=== PATIENT | female | born 1990 | race Two or more races ===

== ENCOUNTER 2016-07-25 11:53 | Emergency (ER) | payer OTHER ==
[~2016-07-25] VITALS: Ht 154.9 cm; Wt 59.0 kg
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
--- NOTE | 2016-07-25 11:54 | NUR ---
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
[2016-07-25] MEDS ORDERED: IV NS 0.9% 1,000 ML BAG IV ONE (12:30)
[2016-07-25 12:46] LABS: BASOPHILS % (AUTO) 0.5 % (0.0-2.0); EOSINOPHILS # (AUTO) 0.1 /CMM (0.0-0.7); HEMATOCRIT 38 % (33-45); HEMOGLOBIN 13.3 g/dL (11.5-14.8); LYMPHOCYTES # (AUTO) 1.5 /CMM (0.8-4.8); LYMPHOCYTES % (AUTO) 18.4 % (20.0-44.0); MEAN CORPUSCULAR HEMOGLOBIN 30 PG (26.0-33.0); MEAN CORPUSCULAR HGB CONC 35 g/dl (31.0-36.0); MEAN CORPUSCULAR VOLUME 87 fL (82-100); MONOCYTES # (AUTO) 0.6 /CMM (0.1-1.30); MONOCYTES % (AUTO) 7.6 % (2.0-12.0); NEUTROPHILS # (AUTO) 5.9 /CMM (1.8-8.9); NEUTROPHILS % (AUTO) 72.5 % (43.0-81.0); PLATELET COUNT (AUTO) 294 /CMM (150-450); RED BLOOD CELL COUNT(AUTO) 4.38 MIL/uL (4.0-5.2); WHITE BLOOD COUNT (AUTO) 8.1 K/uL (4.3-11.0)
[2016-07-25] MEDS ORDERED: IV NS 0.9% 1,000 ML ONE (12:50)
[2016-07-25] MEDS ORDERED: IV SET PRIMARY PUMP SET 1 EA INFUS.SET MC ONE (12:51)
[2016-07-25 12:52] LABS: CALCIUM, SERUM 8.6 mg/dL (8.5-10.1); CARBON DIOXIDE 30 mmol/L (21-32); CHLORIDE 104 mmol/L (98-107); CREATININE 0.7 mg/dL (0.6-1.3); GFR 101 mL/min (>60); GLUCOSE 90 mg/dL (74-106); POTASSIUM 3.4 mmol/L (3.5-5.1); SODIUM SERUM 140 mmol/L (136-145); UREA NITROGEN, BLOOD 6 mg/dL (7-18)
[2016-07-25 12:58] LABS: ACETAMINOPHEN 0 ug/ml (10-30); ALANINE AMINOTRANSFERASE 17 U/L (12-78); ALBUMIN 3.7 g/dL (3.4-5.0); ALCOHOL, BLOOD < 3 mg/dL (0-0); ALKALINE PHOSPHATASE 82 U/L (46-116); ASPARTATE AMINOTRANSFERASE 15 U/L (15-37); BILIRUBIN,DIRECT 0.1 mg/dL (0.0-0.2); BILIRUBIN,TOTAL 0.5 mg/dL (0.2-1.0); SALICYLATE 1.1 mg/dL (2.8-20.0); TOTAL PROTEIN, SERUM 7.2 g/dL (6.4-8.2)
--- NOTE | 2016-07-25 12:58 | NUR ---
PT TAKEN TO CT VIA [facility]
--- NOTE | 2016-07-25 13:22 | NUR ---
URINE SAMPLE COLLECTED SENT TO LAB
[2016-07-25 13:35] LABS: APPEARANCE,URINE Cloudy (CLEAR); BILIRUBIN,URINE Negative (NEGATIVE); BLOOD, URINE Negative Ery/uL (NEGATIVE); COLOR,URINE Yellow (YELLOW); KETONES,URINE Negative (NEGATIVE); LEUKOCYTE ESTERASE ,URINE Trace (NEGATIVE); NITRITE, URINE Negative (NEGATIVE); PROTEIN,URINE 30 mg/dl (NEGATIVE); UGLUCOSE Negative (NEGATIVE)
[2016-07-25 13:54] LABS: ADD URINE CULTURE YES; BACTERIA,URINE Moderate /HPF (None Seen); RBC,URINE 0-2 /HPF (0-2); SQUAMOUS EPITHELIAL CELL,UR Moderate /HPF (None Seen)
[2016-07-25 13:57] LABS: PHENCYCLIDINE SCREEN,URINE NEGATIVE (NEGATIVE)
[2016-07-25 13:58] LABS: CANNABINOID, URINE POSITIVE (NEGATIVE)
--- NOTE | 2016-07-25 14:00 | NUR ---
PT REFUSING SITTING UP AND STANDING FOR ORTHOSTATIC BP. MD DIANNA ERWIN
--- NOTE | 2016-07-25 14:06 | NUR ---
INFORMED HOLLY TO EVALUATE PT
--- NOTE | 2016-07-25 15:58 | NUR ---
TWAN AT BEDSIDE FOR PSYCH EVAL
[2016-07-25 18:27] VITALS: BP 98/59
--- NOTE | 2016-07-25 19:02 | NUR ---
GAVE REPORT TO [facility]
--- NOTE | 2016-07-25 19:22 | NUR ---
PT ACCEPTED TO [facility] BY , NURSE TO NURSE REPORT [phone]
--- NOTE | 2016-07-25 19:24 | NUR ---
[facility]
--- NOTE | 2016-07-25 19:31 | NUR ---
GAVE REPORT TO SHAKIRA AT [facility]. PER SHAKIRA DC IV HEPLOCK PRIOR DC UPDATED DANNA RN
--- NOTE | 2016-07-25 21:00 | NUR ---
REPORT GIVEN TO EMT
== END 2016-07-25 21:50 | disposition short-term general hospital (02) ==
LOC: ER 11:54
DX: F32.9 Major depressive disorder, single episode, unspecified (principal); F15.10 Other stimulant abuse, uncomplicated; R45.851 Suicidal ideations; F17.200 Nicotine dependence, unspecified, uncomplicated; R82.99 Other abnormal findings in urine
CPT/HCPCS: 36415; 70450-TC; 71010-TC; 80048-TC; 80076-TC; 80305; 81000-TC; 84703-TC; 85025-TC; 87086-TC; A4606; G0480; G6039-TC; J7030; Z7610

== ENCOUNTER 2016-08-01 22:42 | Emergency (ER) | payer OTHER ==
--- NOTE | 2016-08-02 01:05 | NUR ---
CALLED X4; INFORMED PT LEFT
== END 2016-08-02 01:05 | disposition left against medical advice (07) ==
LOC: ER 22:42
DX: Z53.21 Procedure and treatment not carried out due to patient leaving prior to being seen by health care provider (principal)